=== PATIENT | female | born 1960 | race Caucasian/White ===

== ENCOUNTER 2016-09-19 07:55 | Day surgery (SDC) | payer BC ==
[2016-09-13 13:37] VITALS: BMI 20.1
[~2016-09-19 07:55] MED LIST: LACTATED RINGERS 1,000 ML IV SCH; LIDOCAINE 1% 20 ML VIAL (10MG/ML) FOR IV START INTRADERMA PRN
[2016-09-19 08:36] VITALS: TEMP 97.6
--- NOTE | 2016-09-19 08:50 | P.GSHP ---
History of Present Illness H&P Date: 09/19/16 CHIEF COMPLAINT: Colon screen HISTORY OF PRESENT ILLNESS: The patient is a 56-year-old female who presents for colon screen. Lower endoscopy was offered for further evaluation and management. PAST MEDICAL HISTORY: Please see list. PAST SURGICAL HISTORY: Please see list. MEDICATIONS: Please see list. ALLERGIES: Please see list. SOCIAL HISTORY: No illicit drug use FAMILY HISTORY: No reports of Crohn disease or ulcerative colitis. REVIEW OF ORGAN SYSTEMS: CONSTITUTIONAL: No reports of fevers or chills. PHYSICAL EXAM: VITAL SIGNS: Stable GENERAL: Well-developed pleasant in no acute distress. HEENT: No scleral icterus. Extraocular movements grossly intact. Moist buccal mucosa. NECK: Supple without lymphadenopathy. CHEST: Unlabored respirations. Equal bilateral excursions. CARDIOVASCULAR: Regular rate and rhythm. Distal 2+ pulses. ABDOMEN: Soft, nontender, nondistended. MUSCULOSKELETAL: No clubbing, cyanosis, or edema. ASSESSMENT: 1. Colon screen. PLAN: 1. Recommend proceeding with a lower endoscopy Past Medical History Past Medical History: Hyperlipidemia, Hypertension History of Any Multi-Drug Resistant Organisms: None Reported Past Surgical History: Hysterectomy Additional Past Surgical History / Comment(s): sx for fibroid tumors, RT salping -oopherectomy Past Anesthesia/Blood Transfusion Reactions: No Reported Reaction Past Psychological History: No Psychological Hx Reported Smoking Status: Former smoker Past Alcohol Use History: Rare Additional Past Alcohol Use History / Comment(s): quit smoking 02/2016, smoked 1ppd from age 15 Past Drug Use History: None Reported - Past Family History Mother Family Medical History: Cancer Additional Family Medical History / Comment(s): skin Medications and Allergies Home Medications Medication Instructions Recorded Confirmed Type Aspirin [Adult Low Dose Aspirin EC] 81 mg PO DAILY 09/13/16 09/13/16 History Atorvastatin [Lipitor] 40 mg PO QAM 09/13/16 09/13/16 History Calcium Carbonate [Calcium] 600 mg PO DAILY 09/13/16 09/13/16 History Cholecalciferol [Vitamin D3] 1,000 unit PO DAILY 09/13/16 09/13/16 History Metoprolol Tartrate [Lopressor] 50 mg PO QAM 09/13/16 09/13/16 History [place]-3 Fatty Acids/Fish Oil [Fish 1 tab PO DAILY 09/13/16 09/13/16 History Oil 1,000 mg Softgel] Allergies Allergy/AdvReac Type Severity Reaction Status Date / Time Sulfa (Sulfonamide Allergy Unknown Verified 09/13/16 13:30 Antibiotics) Childhood Surgical - Exam Vital Signs Temp Pulse Resp BP Pulse Ox 97.6 F 66 18 138/86 100 09/19/16 08:35 09/19/16 08:35 09/19/16 08:35 09/19/16 08:35 09/19/16 08:35
[2016-09-19] MEDS ORDERED: PROPOFOL 10 MG/ML 20 ML VIAL IV ONE (08:57)
--- NOTE | 2016-09-19 09:23 | P.PCN ---
Date of Procedure: 09/19/16 Preoperative Diagnosis: Postoperative Diagnosis: Procedure(s) Performed: Implants: Indications for Procedure: Operative Findings: Description of Procedure: PREOPERATIVE DIAGNOSIS: Colonoscopy screening. POSTOPERATIVE DIAGNOSIS: Colonoscopy screening. Diverticulosis, scattered. Rectal polyp. OPERATION: Colonoscopy to the ileocecal valve and appendiceal orifice. Colonoscopy with cold forceps biopsies along the rectum. SURGEON: Emi Jensen MD. ANESTHESIA: MAC. INDICATIONS: The patient is a 56-year-old female who presents for her first colonoscopy screening. Benefits and risks were described and informed consent was obtained. DESCRIPTION OF PROCEDURE: The patient had undergone Gatorade, MiraLAX and Dulcolax prep. She had been brought into the operating room and laid in the left lateral decubitus position. After adequate intravenous sedation, the rectum was examined with 2% lidocaine jelly. No external hemorrhoids were encountered. The rectal tone was within normal limits. No lesions were palpated in the rectal vault. An Olympus colonoscope was advanced until the ileocecal valve and appendiceal orifice were clearly viewed. The prep was excellent with clear visualization of the mucosal folds. The scope was removed with visualization of each mucosal fold. Scattered diverticulosis was encountered. Rectal colon polyp 3 mm hyperplastic was cold forceps biopsy to completion. No evidence of focal colitis was found. Retroflexion of the scope demonstrated grade 1 internal hemorrhoids without active bleeding or inflammation. The colon was desufflated. The patient had tolerated the procedure well. Withdrawal time was over 6 minutes. FINDINGS: Internal hemorrhoids, grade 1 No external prolapsed hemorrhoids. No arteriovenous malformations. Rectal colon polyp 3 mm hyperplastic was cold forceps biopsy to completion. Scattered sigmoid diverticulosis. No focal colitis. RECOMMENDATIONS: Lower endoscopy in 5 years, 2021. Plan - Discharge Summary New Discharge Prescriptions: No Action Cholecalciferol [Vitamin D3] 1,000 unit PO DAILY Atorvastatin [Lipitor] 40 mg PO QAM [place]-3 Fatty Acids/Fish Oil [Fish Oil 1,000 mg Softgel] 1 tab PO DAILY Metoprolol Tartrate [Lopressor] 50 mg PO QAM Calcium Carbonate [Calcium] 600 mg PO DAILY Aspirin [Adult Low Dose Aspirin EC] 81 mg PO DAILY Discharge Medication List Aspirin [Adult Low Dose Aspirin EC] 81 mg PO DAILY 09/13/16 [History] Atorvastatin [Lipitor] 40 mg PO QAM 09/13/16 [History] Calcium Carbonate [Calcium] 600 mg PO DAILY 09/13/16 [History] Cholecalciferol [Vitamin D3] 1,000 unit PO DAILY 09/13/16 [History] Metoprolol Tartrate [Lopressor] 50 mg PO QAM 09/13/16 [History] [place]-3 Fatty Acids/Fish Oil [Fish Oil 1,000 mg Softgel] 1 tab PO DAILY [History] Patient Instructions/Handouts: *[facility] - (Anesthesia) Endoscopy Discharge Instructions, Colonoscopy (DC)
[2016-09-19 09:32] VITALS: RESP 16
[2016-09-19 09:54] VITALS: BP 157/89; PULSE 58
== END 2016-09-19 10:15 | disposition home or self-care (01) ==
LOC: ORWHC2ENDO 07:55
PROVIDERS: ATTEND Surgery Plastic and Reconstructive Surgery
DX: Z12.11 Encounter for screening for malignant neoplasm of colon (principal); K62.1 Rectal polyp; K57.30 Diverticulosis of large intestine without perforation or abscess without bleeding; K64.0 First degree hemorrhoids; I10 Essential (primary) hypertension; E78.5 Hyperlipidemia, unspecified; Z88.2 Allergy status to sulfonamides; Z79.82 Long term (current) use of aspirin; Z79.899 Other long term (current) drug therapy; Z87.891 Personal history of nicotine dependence; Z80.8 Family history of malignant neoplasm of other organs or systems
CPT/HCPCS: 45380; 88305; J2704

== ENCOUNTER → 2017-02-26 | Outpatient (CLI) | payer BC ==
[2017-02-26 11:50] LABS: Anion Gap 9 mmol/L; Blood Urea Nitrogen 20 mg/dL (7-17); Calcium 10.5 mg/dL (8.4-10.2); Carbon Dioxide 27 mmol/L (22-30); Chloride 106 mmol/L (98-107); Glucose 77 mg/dL (74-99); Potassium 4.6 mmol/L (3.5-5.1); Sodium 142 mmol/L (137-145)
[2017-02-26 12:23] LABS: Basophils # (A) 0.1 k/uL (0-0.2); Basophils % (A) 2 %; Eosinophils # (A) 0.3 k/uL (0-0.7); Eosinophils % (A) 4 %; HCT 44.9 % (34.0-46.0); HGB 14.7 gm/dL (11.4-16.0); Lymphocytes # (A) 2.7 k/uL (1.0-4.8); Lymphocytes % (A) 31 %; MCH 29.1 pg (25.0-35.0); MCHC 32.8 g/dL (31.0-37.0); MCV 88.8 fL (80.0-100.0); Mean Platelet Volume 7.9; Monocytes # (A) 0.5 k/uL (0-1.0); Monocytes % (A) 5 %; Neutrophils # (A) 4.9 k/uL (1.3-7.7); Neutrophils % (A) 57 %; Platelet Count 295 k/uL (150-450); RBC 5.06 m/uL (3.80-5.40); RDW 13.2 % (11.5-15.5); WBC 8.7 k/uL (3.8-10.6)
== END | disposition home or self-care (01) ==
LOC: LABPAT 10:39
PROVIDERS: ATTEND Urology
DX: Z01.818 Encounter for other preprocedural examination (principal); Z01.812 Encounter for preprocedural laboratory examination; C65.2 Malignant neoplasm of left renal pelvis; I20.9 Angina pectoris, unspecified; B19.10 Unspecified viral hepatitis B without hepatic coma
CPT/HCPCS: 36415; 80048; 85025; 93005

== ENCOUNTER 2017-03-06 07:19 | Inpatient (IN) | payer BC ==
[2017-03-01 12:53] VITALS: BMI 21.7
[~2017-03-06 07:19] MED LIST changes: +DEXAMETHASONE SOD PHOSPHATE 10 MG/ML 1 ML VIAL IV ONE; +HYDROmorphone 0.5 MG/0.5 ML SYRINGE IVP PRN; +LACTATED RINGERS 1,000 ML IV ONE; -LACTATED RINGERS 1,000 ML IV SCH; +ONDANSETRON 4 MG/2 ML VIAL IVP ONE; +SCOPOLAMINE 1.5MG/72HR PATCH TRANSDERM ONE
[2017-03-06] MEDS ORDERED: MIDAZOLAM 2 MG/2 ML VIAL IVP ONE (08:25)
[2017-03-06] MEDS ORDERED: GLYCOPYRROLATE 0.2 MG/ML 2 ML VIAL ONE (08:35)
[2017-03-06] MEDS ORDERED: NEOSTIGMINE 1 MG/ML 10 ML VIAL ONE (08:35)
[2017-03-06] MEDS ORDERED: ROCURONIUM BROMIDE 10 MG/ML 10 ML VIAL IV ONE (08:35)
[2017-03-06] MEDS ORDERED: SUCCINYLCHOLINE CHLORIDE 100 MG/5 ML SYR IV ONE (08:35)
[2017-03-06] MEDS ORDERED: MIDAZOLAM 2 MG/2 ML VIAL ONE (08:35)
[2017-03-06] MEDS ORDERED: LIDOCAINE 1% INJ 10MG/ML (20 ML MDV) ONE (08:35)
[2017-03-06] MEDS ORDERED: PROPOFOL 10 MG/ML 20 ML VIAL IV ONE (08:35)
[2017-03-06] MEDS ORDERED: fentaNYL (PF) 50 MCG/ML 2 ML AMP ONE (08:35)
[2017-03-06] MEDS ORDERED: NALBUPHINE 10 MG/ML AMPUL IV PRN (09:10)
[2017-03-06] MEDS ORDERED: NALOXONE 0.4 MG/ML 1 ML VIAL IV PRN (09:10)
[2017-03-06] MEDS ORDERED: LACTATED RINGERS 1,000 ML IV ONE (09:55)
[2017-03-06] MEDS ORDERED: ONDANSETRON 4 MG/2 ML VIAL IVP PRN (11:25)
[2017-03-06] MEDS: BUPIVACAINE (PF) 0.5% 31.3 ML, fentaNYL (PF) 625 MCG in SODIUM CHLORIDE 0.9% 206 ML EPIDURAL PRN ×2 (11:36→12:17)
--- NOTE | 2017-03-06 11:51 | P.OP ---
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 Left nephroureterectomy is planned. Description of Procedure: An epidural catheter was placed by the anesthesiologist in the preoperative holding area. The patient was transported to the operating suite where general anesthesia via orotracheal intubation was instituted. The patient was placed supine on the operating room table. A Duenas catheter was inserted using sterile technique. Sequential pneumatic compression stockings were applied to the lower legs. The hair in the suprapubic area was clipped. The lower chest abdomen and suprapubic area was then prepped and draped in a sterile fashion. A left subcostal incision was made between the midline and left anterior axillary line. Bleeding vessels were controlled using electrocautery. Using electrocautery the muscle layers were incised down into the peritoneal cavity. A padded self-retaining Bookwalter retractor was used to provide exposure. Adhesions were present between the omentum and left anterior and lateral peritoneum. The adhesions were also present in the region of a Pfannenstiel incision. The adhesions between the omentum and peritoneum were taken down that the left kidney and proximal ureter could be palpated. The peritoneal reflection of the left colon was then incised from approximately the level of the pelvic brim to inferior to the spleen. A plane was then developed between the left colon and its mesentery so that the left colon could be reflected medially. In doing this is was possible to identify the left renal vein just lateral to the aorta. The left gonadal vein was identified near the left renal vein and divided between 2-0 silk ties. A left lumbar vein was also identified posterior to the left renal vein and divided between 2-0 silk ties. The main left renal artery was identified posterior to the renal vein and tied with 2-0 silk. The left renal vein was then divided between 2-0 silk ties. The left main renal artery was then divided between 2-0 silk ties and an additional 2-0 silk tie was placed medially. A plane was then developed anterior and superior to the kidney and inferior to the pancreas. This plane was continued medially between the upper pole of the left kidney and left adrenal gland. Venous tributaries were divided between ligaclips using electrocautery. The dissection was then continued lateral to the aorta and medial to the hilum of the kidney and inferiorly to approximately the L4 level. A plane was then developed posterior to the kidney and anterior to the body wall using blunt and sharp dissection. The perinephric fat was then thinned down so that the ureter was the only attachment inferior to the kidney. The ureter was then dissected down to the pelvic brim using blunt and sharp dissection. Tributaries to the ureter were divided between ligaclips using electrocautery. A lower abdominal midline incision was then made between the umbilicus and pubis. Bleeding vessels were controlled using electrocautery. Incision was carried down through the subcutaneous fat and linea alba. The peritoneal cavity was entered and it appeared that there were dense adhesions present between the omentum and peritoneum in the midline and suprapubic area. These adhesions were taken down using electrocautery so that the omentum could be reflected out of the pelvis. The left ureter was identified near the pelvic brim. The left ureter was then dissected down to its attachments with the bladder in the retroperitoneal space. The urothelium of the bladder was tented outward where the ureter entered the bladder and the ureter was transected in this region. The left ureter and kidney were then removed en bloc. The urothelium of the bladder was closed using running 3-0 Vicryl. The muscle of the bladder was reinforced in this region with running 2-0 Vicryl. The pelvis and perinephric space were then inspected for hemostasis. A 7 mm drain was then placed in the retroperitoneum adjacent to the bladder and brought out through a separate stab incision in the left lower quadrant. The drain was secured to the skin with 2-0 silk. The linea alba in the suprapubic region was then closed using running double stranded 2-0 . The left subcostal incision was then closed in layers using running #1 Vicryl. The skin incisions were closed using rody and the wounds were dressed in a sterile fashion. The patient tolerated procedure well and left the operative room awake and in satisfactory condition. Blood loss during the procedure was less than 50 mL. Final sponge, needle and instrument counts were reported as correct.
[2017-03-06] MEDS: D5-0.45% NACL WITH KCL 20MEQ/L 1,000 ML IV SCH ×2 (14:29→21:50)
[2017-03-07] MEDS: D5-0.45% NACL WITH KCL 20MEQ/L 1,000 ML IV SCH ×3 (05:06→20:07)
--- NOTE | 2017-03-07 07:43 | P.PN ---
Progress Note - Text Progress Note Date: 03/07/17 The patient has been afebrile and although her blood pressure was somewhat low during the night she is currently normotensive. She remains comfortable with the epidural anesthetic. She has no cough or shortness of breath and is using incentive spirometry as directed. She is hungry but has not passed any gas. Drainage through the Dennis-Martin tube has been minimal. Exam: Breathing is unlabored- Abdomen-incisions are dry however there was some drainage around the Dennis- Martin site. The abdomen is soft and some bowel sounds are present. Impression: Good recovery so far following left nephroureterectomy. The patient will be tried on small amounts of clear liquids and her activity will be advanced.
--- NOTE | 2017-03-07 07:44 | P.PN ---
Progress Note - Text Patient is postoperative day# 1 status post Nephroureterectomy, epidural catheter placed for postoperative analgesia, patient currently on epidural infusion of bupivacaine/fentanyl, at 6 ml/hours, pain is well controlled, patient has mild itching, epidural site okay, patient has no motor deficit, Assessment and plan= acute postoperative pain, pain is under control. Rate increased to 8 cc/hour. Advised to go up to 10 mL as needed
[2017-03-07] MEDS: BUPIVACAINE (PF) 0.5% 31.3 ML, fentaNYL (PF) 625 MCG in SODIUM CHLORIDE 0.9% 206 ML EPIDURAL PRN (12:17)
--- NOTE | 2017-03-08 09:16 | P.PN ---
Progress Note - Text Progress Note Date: 03/08/17 03/08/2017 at 06:50am. 56 yo female, s/p Nephro-ureterectomy. Post-op day #2. Patient received Lumbar epidural for post-op pain control. Patient was seen today, lying flat in bed, no complaints, pain VAS score 4/10, no headache, no itching, no nausea and vomiting. Epidural rate at 8 mls/hr. No motor or sensory deficit. Assessment and plan: Doing well in general no complications from anesthesia. Will keep Epidural catheter for another day.
[2017-03-08] MEDS: D5-0.45% NACL WITH KCL 20MEQ/L 1,000 ML IV SCH ×3 (11:34→19:53)
[2017-03-08] MEDS: BUPIVACAINE (PF) 0.5% 31.3 ML, fentaNYL (PF) 625 MCG in SODIUM CHLORIDE 0.9% 206 ML EPIDURAL PRN (13:45)
--- NOTE | 2017-03-08 16:52 | P.PN ---
Subjective Progress Note Date: 03/08/17 Principal diagnosis: POD #2, s/p left nephroureterectomy. Patient is no specific complaints. She is tolerating clear liquid diet, and small amounts. She has passed a small amount of flatus. Objective - Vital Signs Vital signs: Vital Signs Temp 98.2 F 03/08/17 14:31 Pulse 68 03/08/17 14:31 Resp 16 03/08/17 14:31 BP 120/64 03/08/17 14:31 Pulse Ox 99 03/08/17 14:31 Intake & Output 03/07/17 03/08/17 03/08/17 18:59 06:59 18:59 Intake Total 65.500 2960 1808.167 Output Total 815 3410 2014 Balance -749.500 -450 -206.833 Intake: IV 2000 1000 D5-0.45% NaCl with KCl 2000 1000 20Meq/l 1,000 ml @ 125 mls/hr IV .Q8H [facility] Rx#: [id number] Intake, IV Titration 65.500 211.167 Amount Bupivacaine (Pf) 0.5% 31. 65.500 211.167 3 ml fentaNYL (PF) 625 mcg In Sodium Chloride 0. 9% 206 ml @ Per Protocol EPIDURAL .Q0M PRN Rx#: [id number] Oral 960 597 Output: Drainage 15 10 40 Left Abdomen 15 10 40 Urine 800 3400 1975 Uretheral (Duenas) 800 Other: Voiding Method Indwelling Catheter Indwelling Catheter Indwelling Catheter - Constitutional General appearance: Present: cooperative, no acute distress - Gastrointestinal Gastrointestinal Comment(s): Soft, non-distended. Incisions clean and dry. - Psychiatric Psychiatric: Present: A&O x's 3, appropriate affect Assessment and Plan (1) Cancer of left renal pelvis Current Visit: Yes Status: Acute Code(s): C65.2 - MALIGNANT NEOPLASM OF LEFT RENAL PELVIS SNOMED Code(s): 031668823 Plan: The patient's condition is stable. Diet will be advanced to a soft diet. The epidural catheter will remain in place until tomorrow.
[2017-03-09] MEDS: D5-0.45% NACL WITH KCL 20MEQ/L 1,000 ML IV SCH ×3 (03:30→20:35)
[2017-03-09] MEDS ORDERED: HYDROcodone/APAP 5-325MG 1 EACH TAB PO PRN (10:26)
[2017-03-09] MEDS ORDERED: KETOROLAC 30 MG/ML 1 ML VIAL IVP PRN (10:26)
--- NOTE | 2017-03-09 10:29 | P.PN ---
Subjective Progress Note Date: 03/09/17 Principal diagnosis: POD #3, s/p left nephroureterectomy. Patient is no specific complaints. She is tolerating soft diet in small amounts. She has not had a bowel movement but is passing flatus. She denies nausea, vomiting, chest pain, or SOB. Objective - Vital Signs Vital signs: Vital Signs Temp 98.4 F 03/09/17 07:00 Pulse 78 03/09/17 07:00 Resp 16 03/09/17 07:00 BP 104/67 03/09/17 07:00 Pulse Ox 94 L 03/09/17 07:00 Intake & Output 03/08/17 03/09/17 03/09/17 18:59 06:59 18:59 Intake Total 1808.167 250 Output Total 2615 1620 Balance -806.833 -1370 Intake: IV 1000 250 D5-0.45% NaCl with KCl 1000 250 20Meq/l 1,000 ml @ 125 mls/hr IV .Q8H [facility] Rx#: [id number] Intake, IV Titration 211.167 Amount Bupivacaine (Pf) 0.5% 31. 211.167 3 ml fentaNYL (PF) 625 mcg In Sodium Chloride 0. 9% 206 ml @ Per Protocol EPIDURAL .Q0M PRN Rx#: [id number] Oral 597 Output: Drainage 40 20 Left Abdomen 40 20 Urine 2575 1600 Other: Voiding Method Indwelling Catheter Indwelling Catheter Indwelling Catheter - Constitutional General appearance: Present: cooperative, no acute distress - Gastrointestinal Gastrointestinal Comment(s): Soft, non-distended. Incisions clean and dry. - Psychiatric Psychiatric: Present: A&O x's 3, appropriate affect Assessment and Plan (1) Cancer of left renal pelvis Current Visit: Yes Status: Acute Code(s): C65.2 - MALIGNANT NEOPLASM OF LEFT RENAL PELVIS SNOMED Code(s): 761142914 Plan: The patient's condition is stable. Diet will be advanced to a regular diet. The epidural catheter will be removed, along with the TAMEKA drain.
[2017-03-09] MEDS: HYDROmorphone 2 MG/ML 1 ML SYRINGE IVP PRN ×2 (19:51→22:49)
[2017-03-09] MEDS: HYDROcodone/APAP 5-325MG 1 EACH TAB PO PRN (21:19)
[2017-03-10] MEDS: HYDROmorphone 2 MG/ML 1 ML SYRINGE IVP PRN ×2 (01:38→04:32)
[2017-03-10] MEDS: D5-0.45% NACL WITH KCL 20MEQ/L 1,000 ML IV SCH (04:29)
[2017-03-10] MEDS: HYDROcodone/APAP 5-325MG 1 EACH TAB PO PRN ×2 (08:07→12:27)
[2017-03-10 08:17] VITALS: BP 119/69; PULSE 68; RESP 19
--- NOTE | 2017-03-10 11:38 | P.DS ---
Providers Date of admission: 03/06/17 07:19 Expected date of discharge: 03/10/17 Attending physician: Gilberto Avina Primary care physician: Charbel Murillo - Discharge Diagnosis(es) (1) Cancer of left renal pelvis Current Visit: Yes Status: Acute Hospital Course: On the day of admission, the patient underwent an uncomplicated left nephroureterectomy. The postoperative course was unremarkable. She remained afebrile with stable vital signs. She had no difficulty tolerating diet, and his diet was advanced throughout her hospitalization. The epidural catheter and TAMEKA drains were both removed on the third postoperative day. At the time of discharge, she was tolerating regular diet. She was ambulating well. The incisions were clean and dry. She was passing flatus but had not had a bowel movement. Procedures: Left Nephroureterectomy on 03/06/2017. Patient Condition at Discharge: Good Plan - Discharge Summary Discharge Rx Participant: Yes New Discharge Prescriptions: New Hydrocodone/Acetaminophen [[place] 5-325] 1 - 2 each PO Q4HR PRN #20 tab PRN Reason: Pain No Action Atorvastatin [Lipitor] 20 mg PO QAM Metoprolol Tartrate [Lopressor] 25 mg PO QAM Discharge Medication List Atorvastatin [Lipitor] 20 mg PO QAM 09/13/16 [History] Metoprolol Tartrate [Lopressor] 25 mg PO QAM 09/13/16 [History] Hydrocodone/Acetaminophen [[place] 5-325] 1 - 2 each PO Q4HR PRN #20 tab 03/10/17 [Rx] Follow up Appointment(s)/Referral(s): Gilberto Avina MD [STAFF PHYSICIAN] - 3 Days Activity/Diet/Wound Care/Special Instructions: Discharge home with Duenas catheter. Also please provide patient with a urinary leg bag, and teach her to switch bags. She may shower. No lifting, driving, or strenuous activity. Discharge Disposition: HOME SELF-CARE
[2017-03-10 13:29] VITALS: TEMP 97.9
== END 2017-03-10 13:45 | disposition home or self-care (01) | DRG 658 ==
LOC: 2ORMAIN 07:19 → 3SUR 11:20 → 6PED 03-09 17:45
PROVIDERS: ADMIT Urology; ATTEND Urology
PROC: 0TT10ZZ Resection of Left Kidney, Open Approach (ICD-10-PCS; principal; 2017-03-06 08:30)
PROC: 0TT70ZZ Resection of Left Ureter, Open Approach (ICD-10-PCS; principal; 2017-03-06 08:30)
DX: C64.2 Malignant neoplasm of left kidney, except renal pelvis (principal); E78.00 Pure hypercholesterolemia, unspecified; I10 Essential (primary) hypertension; Z79.82 Long term (current) use of aspirin; Z79.899 Other long term (current) drug therapy; Z88.2 Allergy status to sulfonamides; Z82.49 Family history of ischemic heart disease and other diseases of the circulatory system; Z80.8 Family history of malignant neoplasm of other organs or systems; Z87.891 Personal history of nicotine dependence
CPT/HCPCS: 86850; 86900; 86901; 88307

== ENCOUNTER → 2017-12-06 | Outpatient (CLI) | payer BC ==
--- NOTE | 2017-12-07 22:20 | CT ---
EXAMINATION TYPE: CT abdomen pelvis w con DATE OF EXAM: 12/06/2017 COMPARISON: NONE HISTORY: 57-year-old female f/u ca of renal pelvis, left kidney removed 2016 TECHNIQUE: Contiguous axial scanning of the abdomen and pelvis following administration of 80 ml Isov ue 300 IV contrast. Delayed images through the kidneys and coronal/sagittal reconstructions performe d. CT DLP: 445.7 mGycm Automated exposure control for dose reduction was used. FINDINGS: Heart normal size without pericardial effusion. Calcified granuloma medial left base. There is a 5 mm subpleural pulmonary nodule at the peripheral left base with somewhat low density. This should be re assessed at follow-up. No focal liver lesion. Bile duct mildly dilated and a 8 mm without any distal obstructing lesion seen , possibly chronic in this patient. Portal venous system is patent. Gallbladder, adrenal glands, spleen, and pancreas appear within normal limits. Right kidney appears satisfactory. Postsurgical changes of left nephrectomy with surgical clips in the nephrectomy bed. No abnormal soft tissue is seen in the nephrectomy bed. Borderline sized 7 mm left periaortic lymph node, axial image 34 may be reactive. Follow-up is recomm ended. No additional mesenteric or retroperitoneal lymphadenopathy seen. No dilated small bowel, free fluid, or free air. There is moderate stool burden with oral contrast pr ogressed to the hepatic flexure. Normal appendix.. Mild circumferential bladder wall thickening. Uterus surgically absent. Left ovary is visualized. Rig ht ovary not clearly seen. No abnormal fluid collection in the pelvis or pelvic lymphadenopathy. Pelv ic phleboliths are noted. Bones: No osseous destructive process. IMPRESSION: 1. A COUPLE FINDINGS WHICH SHOULD BE REASSESSED AT FOLLOW-UP: 5 MM SUBPLEURAL PULMONARY NODULE AT THE LEFT BASE AND A 7 MM LEFT PARA-AORTIC LYMPH NODE IN THE RETROPERITONEUM. NO PRIORS AVAILABLE FOR COM PARISON PURPOSES. 2. STATUS POST LEFT NEPHRECTOMY WITHOUT EVIDENCE FOR LOCAL RECURRENCE. 3. MILDLY DILATED BILE DUCT AT 8 MM. NO DISTAL OBSTRUCTING LESION SEEN. POSSIBLY CHRONIC IN THIS JORGE ENT. NORMAL ALKALINE PHOSPHATASE AND BILIRUBIN LEVELS WOULD BE REASSURING. 4. MILD CIRCUMFERENTIAL BLADDER WALL THICKENING. CORRELATE TO EXCLUDE CYSTITIS.
== END ==
LOC: RADCTMAIN 15:47
PROVIDERS: ATTEND Urology
DX: K83.8 Other specified diseases of biliary tract (principal); N32.89 Other specified disorders of bladder; Z90.5 Acquired absence of kidney; Z88.2 Allergy status to sulfonamides
CPT/HCPCS: 82565; 84520; 74177; 36415; Q9967

== ENCOUNTER → 2018-12-03 | Outpatient (CLI) | payer BC ==
--- NOTE | 2018-12-03 17:08 | CT ---
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 Left kidney removal CT DLP: 499.40mGycm Automated Exposure Control for Dose Reduction was Utilized. CONTRAST: CT scan of the abdomen and pelvis is performed with IV Contrast, patient injected with 80 mL of Isovu e 300. COMPARISON: CT abdomen and pelvis December 06, 2017 FINDINGS: LUNG BASES: There is a 6 mm calcified left medial basilar nodule image 9. LIVER/GB: Gallbladder fold thickening noted. Stable mild extra hepatic biliary dilatation. PANCREAS: No significant abnormality is seen. SPLEEN: No significant abnormality is seen. ADRENALS: No significant abnormality is seen. KIDNEYS: Surgical clips from total left nephrectomy redemonstrated. Satisfactory cortical medullary u ptake and excretion from right kidney without concerning renal mass or hydronephrosis. Bladder poorly distended without intraluminal mass or suspicious wall thickening. BOWEL: Oral contrast reaches level of the splenic flexure. No suspicious small or large bowel dilatat ion. UTERUS/ADNEXA: Uterus surgically absent or markedly atrophic. Occasional scattered left-sided pelvic phlebolith. LYMPH NODES: No new greater than 1cm abdominal or pelvic lymph nodes are appreciated. Stable 9 x 4 mm left periaortic lymph node image 35. Just below this and lateral to this prior 7 mm lymph node is no t clearly seen. OSSEOUS STRUCTURES: No significant abnormality is seen. OTHER: No significant additional abnormality is seen. IMPRESSION: Left nephrectomy changes redemonstrated. No new mass or adenopathy to suggest neoplastic recurrence.
== END ==
LOC: RADCTMAIN 12:20
PROVIDERS: ATTEND Urology
DX: C65.9 Malignant neoplasm of unspecified renal pelvis (principal); Z90.5 Acquired absence of kidney
CPT/HCPCS: 82565; 84520; 74177; 36415; Q9967

== ENCOUNTER → 2019-12-14 | Outpatient (CLI) | payer BC ==
--- NOTE | 2019-12-14 19:43 | CT ---
EXAMINATION TYPE: CT abdomen pelvis w con DATE OF EXAM: 12/14/2019 COMPARISON: CT abdomen pelvis 12/03/2018, 12/06/2017 HISTORY: follow up renal cancer CT DLP: 425.4 mGycm Automated exposure control for dose reduction was used. TECHNIQUE: Helical acquisition of images was performed from the lung bases through the pelvis. CONTRAST: Performed with Oral Contrast and with IV Contrast, patient injected with 80 mL of Isovue 300. FINDINGS: LUNG BASES: Calcified granuloma of left lower lobe. 4 mm pleural-based nodule of the left lower lobe (3:7) is unchanged versus 2018 and likely benign. LIVER: Normal. BILIARY SYSTEM: Mild dilatation of the common bile duct measuring up to 8 mm, unchanged versus 2018 c omparison. No intrahepatic biliary ductal dilatation. Normal gallbladder. PANCREAS: Normal. SPLEEN: Normal. ADRENALS: Normal bilaterally. KIDNEYS: Status post left nephrectomy with no evidence of residual or recurrent renal cell carcinoma. Right kidney normal. BOWEL: No obstruction or thickening. Normal appendix. PERITONEUM: No pneumoperitoneum. No free fluid. LYMPH NODES: No lymphadenopathy. There are 2 prominent nonenlarged left retroperitoneal lymph nodes measuring 6 mm (3:31) and 8 mm (3:32) which are unchanged versus 2018. PELVIS: Normal. VASCULATURE: No abdominal aortic aneurysm. MUSCULOSKELETAL: No aggressive osseous destructive lesions. IMPRESSION: Status post left nephrectomy, with no evidence of recurrent or metastatic renal cell carcinoma of the abdomen or pelvis.
== END | disposition home or self-care (01) ==
LOC: RADCTMAIN 10:38
PROVIDERS: ATTEND Urology
DX: C65.9 Malignant neoplasm of unspecified renal pelvis (principal); Z90.5 Acquired absence of kidney; Z88.2 Allergy status to sulfonamides
CPT/HCPCS: 82565; 84520; 74177; 36415; Q9967

== ENCOUNTER → 2021-02-16 | Outpatient (CLI) | payer BC ==
--- NOTE | 2021-02-16 14:42 | XR ---
EXAMINATION TYPE: XR chest 2V DATE OF EXAM: 02/16/2021 COMPARISON: Limited comparison made CT of the abdomen dated 12/14/2019 HISTORY: 60 years Female. STUDY INDICATION GIVEN: C64.2 . Chest pain TECHNIQUE: Frontal and lateral chest radiographs. IMPRESSION: No focal airspace disease, pneumothorax or pleural effusion. There is a nodular opacity in the medial aspect of the right hemithorax measuring about 1.0 cm. This may be reflective of a nodule which appears calcified on the prior CT. Correlation with CT urogram sc heduled the same day is recommended, otherwise recommend dedicated chest CT. The cardiomediastinal silhouette is normal in appearance. No acute osseous abnormalities seen.
--- NOTE | 2021-02-17 08:09 | CT ---
EXAMINATION TYPE: CT urogram wo/w con DATE OF EXAM: 02/16/2021 COMPARISON: 12/14/2019 HISTORY: Left kidney cancer. CT DLP: 880.5 mGycm CONTRAST: Performed and with IV Contrast, patient injected with 80ml mL of Isovue 300. CT Urography was performed with unenhanced followed by enhanced images of the kidneys, ureters and ur inary bladder. Delayed images were obtained. 3d reconstruction was performed at a separate work sta tion. FINDINGS: KIDNEYS/BLADDER: Changes of left-sided nephrectomy. Left renal fossa is free of recurrent mass. No h ydronephrosis. No nephrolithiasis. No distinct renal mass. Urinary bladder grossly unremarkable. LUNG BASES-: No visible nodule. No infiltrate. LIVER/GB: No calcified gallstones. No space occupying hepatic lesion. Biliary tree is of normal ca liber. PANCREAS: No inflammation. No distinct mass. SPLEEN: No splenic enlargement. No lesion seen. ADRENALS: No nodule. No thickening. BOWEL: Normal appendix. Normal bowel caliber. No inflammation. GENITAL ORGANS: No gross abnormality. LYMPH NODES: No greater than 1cm abdominal or pelvic lymph nodes are appreciated. AORTA: No significant abnormality. OSSEOUS STRUCTURES: No significant abnormality is seen. OTHER: No significant additional abnormality is seen. IMPRESSION: 1. Changes of left-sided nephrectomy. Left renal fossa is free of recurrent mass.
== END | disposition home or self-care (01) ==
LOC: RADCTMAIN 13:35
PROVIDERS: ATTEND Urology
DX: R07.9 Chest pain, unspecified (principal); Z85.528 Personal history of other malignant neoplasm of kidney
CPT/HCPCS: 82565; 84520; 71046; 74178; 36415; 74400; Q9967

== ENCOUNTER → 2021-09-12 | Outpatient (CLI) | payer BC ==
--- NOTE | 2021-09-12 19:48 | CT ---
EXAMINATION TYPE: CT chest w con CT DLP: 125.0 mGycm, Automated exposure control for dose reduction was used. DATE OF EXAM: 09/12/2021 5:24 PM COMPARISON: Chest radiograph 02/16/2021 CT abdomen pelvis dating back to 12/06/2017 CLINICAL INDICATION:Female, 61 years old with history of C64.2 renal ca, f/u spot on lung. hx renal p norman ca. pt only has 1 kidney TECHNIQUE: Multiple axial images were obtained through the chest. Sagittal and coronal reformats were created for review. Contrast used:80 mL of Isovue 300 with IV Contrast, Oral contrast used: none. FINDINGS: LUNGS/ PLEURA: Right apical nodular density felt to represent apical scarring. Right upper lobe nodule measuring 4 mm series 4 image 24. Right lower lobe nodule measuring 2 mm series 4 image 28. Left lower lobe nodule measuring 5 mm series 4 image 54 Left lower lobe partially calcified hematomas/granuloma measuring 10 mm, series 4 image 49. Left upper lobe groundglass nodule measuring 4 mm series 4 image 13. No evidence of focal consolidation, pneumothorax or pleural effusion. AIRWAY: Patent and unremarkable. HEART: Size within normal limits. MEDIASTINUM: No gross evidence of adenopathy. VASCULATURE: No aortic aneurysm. MUSCULOSKELETAL: No acute osseous abnormalities. No suspicious osseous lesions. SOFT TISSUES/LYMPH NODES: Unremarkable. LOWER NECK: Bilateral thyroid nodules on the right measuring 6 mm and on the left measuring 14 mm. UPPER ABDOMEN: Low-attenuation to the liver parenchyma. Multiple surgical clips are seen within the l eft upper quadrant consistent with provided left nephrectomy is no evidence of soft tissue mass or ly mphadenopathy within the abdomen to suggest recurrence/metastatic disease. IMPRESSION: 1. Left lower lobe partially calcified pulmonary nodule favored to represent hamartoma and/or partial ly calcified granuloma. This is not significantly changed from 2018. Additional scattered pulmonary n odules measuring less than [address] chest in 12 months to ensure stability. 2. Post left nephrectomy changes without evidence recurrence or metastatic disease within the abdomen or pelvis. 3. Bilateral thyroid nodules, measuring up to 14 mm in the left. These can be further assessed with d edicated thyroid ultrasound if clinically warranted. 4. Hepatic steatosis.
== END | disposition home or self-care (01) ==
LOC: RADCTMAIN 16:17
PROVIDERS: ATTEND Urology
DX: C64.2 Malignant neoplasm of left kidney, except renal pelvis (principal); K76.0 Fatty (change of) liver, not elsewhere classified; E04.2 Nontoxic multinodular goiter
CPT/HCPCS: 82565; 84520; 71260; 36415; Q9967

== ENCOUNTER → 2022-10-31 | Outpatient (CLI) | payer BC ==
--- NOTE | 2022-11-01 08:51 | MR ---
EXAMINATION TYPE: MR brain wo/w con DATE OF EXAM: 10/31/2022 COMPARISON: No comparison studies at this location HISTORY: Hx of Brain, kidney, pelvis and possibly lung cancer, Will be having radiation CONTRAST: Performed utilizing 5 mL intravenous Gadavist gadolinium contrast. TECHNIQUE: Multiplanar, multiecho imaging on a 3.0 Maura magnet is performed through the brain. Stud y is performed within 24 hours of arrival to the hospital. The craniovertebral junction is normal. The pituitary is normal. Diffusion-weighted imaging is performed. No abnormal hyperintensity is present to suggest an acute i ntracranial infarct or acute ischemic change. There is an area of hyperintensity on T2-weighted sequences within the inferior watershed region betw een the parietal and occipital lobes. This has some peripheral increased signal on diffusion and exte nds to the cortex. This is estimated to measure 3.7 x 1.5 cm, example image series 401 image 16. Some vasogenic edema is adjacent. There appears to be an adjacent craniotomy defect. Some minimal subdura l hematoma or surgical packing with a depth of 0.6 cm may be adjacent with mild displacement of the a djacent brain, example image series 601 image 43. No suspicious additional areas for possible metastasis are identified. Ventricles and sulci are appropriate for the patient age. IMPRESSION: 1. Lesion within the inferior left parietal occipital junction extending to the cortex with adjacent vasogenic edema compatible with metastatic lesion and surgical site.
== END | disposition home or self-care (01) ==
LOC: RADMRIMAIN 17:14
PROVIDERS: ATTEND Radiology Radiation Oncology
DX: C79.31 Secondary malignant neoplasm of brain (principal); C65.9 Malignant neoplasm of unspecified renal pelvis
CPT/HCPCS: 70553; A9585

== ENCOUNTER → 2023-01-18 | Outpatient (CLI) | payer BC ==
--- NOTE | 2023-01-20 17:50 | MR ---
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 TECHNIQUE: Multi planar, multi sequence imaging was performed through the brain including: T1, T2, In version recovery, susceptibility weighted imaging and gradient echo imaging and Diffusion weighted im aging. The patient was then given intravenous contrast and multi planar, T1 fat-saturation images wer e obtained. IV Contrast: 5.5 cc Gadavist FINDINGS: Post surgical changes with decrease in enhancement around the surgical bed compared to immediate prio r in the left occipital/parietal region. There remains some small enhancement on the superior and ant erior aspect. No new intracranial enhancing mass visualized. The susceptibility blooming artifact layla und the surgical bed compatible with hemosiderin deposition. The draper-white junctions, ventricular system, basal cisterns appear unremarkable. Diffusion-weighted imaging shows no evidence of restricted diffusion to suggest acute/subacute infarct. Intracranial ar terial flow voids are maintained. Midline structures show no abnormality. The bone marrow signal is within normal limits given the postsurgical changes in the left posterior l ateral aspect of the skull. Paranasal sinuses and mastoid air cells: No significant paranasal sinus d isease. Visualized orbits: Orbital contents are intact. IMPRESSION: 1. Postsurgical changes with decrease in enhancement around the surgical bed in the left occipital/p arietal region. No new enhancing lesions identified. 2. No evidence for acute/subacute CVA.
== END | disposition home or self-care (01) ==
LOC: RADMRIMAIN 14:05
PROVIDERS: ATTEND Radiology Radiation Oncology
DX: C79.31 Secondary malignant neoplasm of brain (principal); Z98.890 Other specified postprocedural states
CPT/HCPCS: 70553; A9585

== ENCOUNTER → 2023-04-19 | Outpatient (CLI) | payer BC ==
--- NOTE | 2023-04-19 12:28 | MR ---
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 TECHNIQUE: Multi planar, multi sequence imaging was performed through the brain including: T1, T2, In version recovery, susceptibility weighted imaging and gradient echo imaging and Diffusion weighted im aging. The patient was then given intravenous contrast and multi planar, T1 fat-saturation images wer e obtained. IV Contrast: 6 cc Gadavist FINDINGS: Post surgical changes with again interval decrease in enhancement around the surgical bed compared to immediate prior in the left occipital/parietal region. There remains some small enhancement on the s uperior and anterior aspect. No new intracranial enhancing mass visualized. The susceptibility bloomi ng artifact around the surgical bed compatible with hemosiderin deposition. The draper-white junctions, ventricular system, basal cisterns appear unremarkable. Diffusion-weighted imaging shows no evidence of restricted diffusion to suggest acute/subacute infarct. Intracranial ar terial flow voids are maintained. Midline structures show no abnormality. The bone marrow signal is within normal limits given the postsurgical changes in the left posterior l ateral aspect of the skull. Paranasal sinuses and mastoid air cells: No significant paranasal sinus d isease. Visualized orbits: Orbital contents are intact. IMPRESSION: 1. Postsurgical changes with continued decrease in enhancement around the surgical bed in the left o ccipital/parietal region. No new enhancing lesions identified. 2. No evidence for acute/subacute CVA.
== END | disposition home or self-care (01) ==
LOC: RADMRIMAIN 10:23
PROVIDERS: ATTEND Radiology Radiation Oncology
DX: C79.31 Secondary malignant neoplasm of brain (principal); Z85.53 Personal history of malignant neoplasm of renal pelvis; Z98.890 Other specified postprocedural states
CPT/HCPCS: 70553; A9585

== ENCOUNTER → 2023-07-29 | Outpatient (CLI) | payer BC ==
--- NOTE | 2023-07-29 14:51 | MR ---
EXAMINATION TYPE: MR brain wo/w con DATE OF EXAM: 07/29/2023 2:32 PM COMPARISON: NONE HISTORY: Metastatic renal cancer, F/U to brain tumor resection. CONTRAST: Patient received 5 mL intravenous Gadavist gadolinium contrast. Multiplanar and multispin-echo imaging of the brain was performed . Pre and post contrast enhanced i mages are obtained. The ventricles, basal cisterns and sulci overlying the cerebral convexities are mildly enlarged. There is evidence of mild periventricular white matter ischemic demyelination. Remote deep white matter insults are also noted. No acute edema is seen on diffusion weighted imaging. There is no evidence for midline shift or mass effect. Acute intracranial hemorrhage or extra-axial collection is not evident. Postoperative changes are again noted within the left occipital parietal region. Previously noted pos toperative enhancement has resolved. No new enhancing lesions resident at this time. The paranasal sinuses and mastoid air cells are well-aerated. IMPRESSION: Postoperative changes are again noted within the left occipital parietal region. Previously noted pos toperative enhancement has resolved. No new enhancing lesions resident at this time.
== END | disposition home or self-care (01) ==
LOC: RADMRIMAIN 13:34
PROVIDERS: ATTEND Radiology Radiation Oncology
DX: C79.31 Secondary malignant neoplasm of brain (principal); Z85.53 Personal history of malignant neoplasm of renal pelvis
CPT/HCPCS: 70553; A9585

== ENCOUNTER → 2023-12-03 | Outpatient (CLI) | payer BC ==
--- NOTE | 2023-12-03 12:48 | MR ---
EXAMINATION TYPE: MR brain wo/w con DATE OF EXAM: 12/03/2023 12:13 PM CLINICAL INDICATION: Female, 63 years old with history of C79.31 brain neoplasm; PHH, F/U brain tumor treatment x 4 months COMPARISON: 07/29/2023 and 04/19/2023 TECHNIQUE: Multi planar, multi sequence imaging was performed through the brain including: T1, T2, In version recovery, susceptibility weighted imaging and gradient echo imaging and Diffusion weighted im aging. The patient was then given intravenous contrast and multi planar, T1 fat-saturation images wer e obtained. IV Contrast: 5 cc Gadavist FINDINGS: Post surgical changes with again interval interval increase in enhancement around the surgical bed co mpared to immediate prior in the left occipital/parietal region measuring up to 7 mm, series 703 imag e 46 and series 701 image 71. No other areas of abnormal enhancement definitively visualized. The caitlin ceptibility blooming artifact around the surgical bed compatible with hemosiderin deposition. The draper-white junctions, ventricular system, basal cisterns appear unremarkable. Diffusion-weighted imaging shows no evidence of restricted diffusion to suggest acute/subacute infarct. Intracranial ar terial flow voids are maintained. Midline structures show no abnormality. The bone marrow signal is within normal limits given the postsurgical changes in the left posterior l ateral aspect of the skull. Paranasal sinuses and mastoid air cells: No significant paranasal sinus d isease. Visualized orbits: Orbital contents are intact. IMPRESSION: 1. Postsurgical changes with interval increase in enhancement around the surgical bed and neck suppl e frontal region. Continued attention on follow-up imaging. 2. No evidence for acute/subacute CVA. [facility], , 12/03/2023 12:46 PM
== END | disposition home or self-care (01) ==
LOC: RADMRIMAIN 11:31
PROVIDERS: ATTEND Radiology Radiation Oncology
DX: C79.31 Secondary malignant neoplasm of brain
CPT/HCPCS: 70553

== ENCOUNTER → 2024-02-04 | Outpatient (CLI) | payer BC ==
--- NOTE | 2024-02-04 14:43 | MR ---
EXAMINATION TYPE: MR brain wo/w con DATE OF EXAM: 02/04/2024 12:27 PM COMPARISON: None. CLINICAL INDICATION: Female, 63 years old with history of C79.31, Z85.53, F/u abnormal MRI x 2 months TECHNIQUE: Multi planar multi sequence imaging of the brain. CONTRAST: Patient received 5 mL intravenous Gadobutrol gadolinium contrast. Pre and post contrast en hanced images are obtained. FINDINGS: The ventricles, basal cisterns and sulci overlying the cerebral convexities are mildly enlarged. There is evidence of mild periventricular white matter ischemic demyelination. Remote deep white matter insults are also noted. No acute edema is seen on diffusion weighted imaging. There is no evidence for midline shift or mass effect. Acute intracranial hemorrhage or extra-axial collection is not evident. Within the left parietal-occipital region there is evidence of postsurgical change with interval incr ease in ring enhancing lesion at the surgical bed measuring 11 x 15 mm versus 7 mm previously. No add itional areas of abnormal enhancement seen at this time. Postoperative Encephalomalacia or Calvarial Defect Noted. The paranasal sinuses and mastoid air cells are well-aerated. IMPRESSION: Within the left parietal-occipital region there is evidence of postsurgical change with interval incr ease in ring enhancing lesion at the surgical bed measuring 11 x 15 mm versus 7 mm previously. No add itional areas of abnormal enhancement seen at this time. [facility], , 02/04/2024 2:41 PM
== END | disposition home or self-care (01) ==
LOC: RADMRIMAIN 11:28
PROVIDERS: ATTEND Radiology Radiation Oncology
DX: C79.31 Secondary malignant neoplasm of brain (principal); Z85.53 Personal history of malignant neoplasm of renal pelvis
CPT/HCPCS: 70553; A9585

== ENCOUNTER → 2024-06-08 | Outpatient (CLI) | payer BC ==
--- NOTE | 2024-06-08 14:54 | MR ---
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 Patient refuse d contrast. TECHNIQUE: Multi planar multi sequence imaging of the brain. FINDINGS: The ventricles, basal cisterns and sulci overlying the cerebral convexities are mildly enlarged. There is evidence of mild periventricular white matter ischemic demyelination. Remote deep white matter insults are also noted. No acute edema is seen on diffusion weighted imaging. Post Operative changes noted within the left parietal-occipital region. Focal cystic area adjacent to the surgical bed measures 11 mm versus maximal measurement previously of 15 mm. Lack of contrast palacios s limit the right comparison however. No additional lesions seen. Acute intracranial hemorrhage or extra-axial collection is not evident. The paranasal sinuses and mastoid air cells are well-aerated. IMPRESSION: Age-related atrophic and chronic small vessel ischemic change. Post Operative changes noted within t he left parietal-occipital region. Focal cystic area adjacent to the surgical bed measures 11 mm vers us maximal measurement previously of 15 mm. Lack of contrast does limit the right comparison however. No additional lesions seen. [facility], , 06/08/2024 2:52 PM
== END | disposition home or self-care (01) ==
LOC: RADMRIMAIN 14:04
PROVIDERS: ATTEND Radiology Radiation Oncology
DX: C79.31 Secondary malignant neoplasm of brain (principal); I67.82 Cerebral ischemia; G31.1 Senile degeneration of brain, not elsewhere classified; Z85.53 Personal history of malignant neoplasm of renal pelvis
CPT/HCPCS: 70551

== ENCOUNTER → 2024-08-20 | Outpatient (CLI) | payer BC ==
--- NOTE | 2024-08-21 18:29 | MR ---
INDICATION: Patient age:Female; 64 years old; Reason for study: C79.31, Z85.53; [facility]. COMPARISON: Multiple MRI brains with most recent 06/08/2024. TECHNIQUE: Multi planar, multi sequence imaging was performed through the brain. The patient was then given 5 cc of Gadobutrol intravenously and multi planar, T1 fat-saturation images were obtained. FINDINGS: Post surgical changes with significant decreased enhancement around the left occipital/parietal regio n surgical bed compared to prior exam. There is some trace curvilinear enhancement identified along i ts more superior inferior aspect. No suspicious nodular enhancement. No other areas of abnormal enhan cement definitively visualized. There is susceptibility blooming artifact around the surgical bed com patible with hemosiderin deposition again. Unchanged focal cystic area posterior adjacent to the surg ical bed measuring up to 1 cm without enhancement. Similar surrounding FLAIR signal hyperintensity li rashad related to posttreatment change around the surgical bed. Stable subcentimeter focus of FLAIR sig nal hyperintensity within the right frontal lobe subcortical white matter. Probably related to small vessel ischemic disease. No new suspicious foci identified. No hydrocephalus. Slight ex vacuo dilatation of the posterior horn of the left lateral ventricle agai n demonstrated. The basal cisterns appear unremarkable. The draper-white junctions are unremarkable. Di ffusion-weighted imaging shows no evidence of restricted diffusion to suggest acute/subacute infarct. Intracranial arterial flow voids are maintained. Midline structures show no abnormality. The bone marrow signal is within normal limits given the postsurgical craniotomy changes to the left parietal bone. No paranasal sinus disease is identified. The overall contents appear intact. No evide nce for mastoid effusion. IMPRESSION: 1. Postsurgical changes with significantly decreased enhancement around the surgical bed from prior examination. This likely represents posttreatment changes. No new concerning enhancement. 2. No evidence for acute/subacute CVA. [facility], , 08/21/2024 6:26 PM
== END | disposition home or self-care (01) ==
LOC: RADMRIMAIN 20:00
PROVIDERS: ATTEND Radiology Radiation Oncology
DX: C79.31 Secondary malignant neoplasm of brain (principal); Z85.53 Personal history of malignant neoplasm of renal pelvis; Z98.890 Other specified postprocedural states
CPT/HCPCS: 70553; A9585